=== PATIENT | female | born 1965 | race Two or more races ===

== ENCOUNTER 2021-03-10 00:42 | Emergency (ER) | payer MEDICAID ==
[~2021-03-10] VITALS: Ht 160 cm; Wt 70.8 kg
[2021-03-10 01:45] VITALS: BP 129/83
[2021-03-10] MEDS ORDERED: IBUP-1957 PO (02:02)
[2021-03-10] MEDS ORDERED: IBUPROFEN 400 MG TABLET ONE (02:06)
[2021-03-10] MEDS ORDERED: IBUPROFEN 400 MG TABLET PO ONE (02:30)
== END 2021-03-10 02:17 | disposition home or self-care (01) ==
LOC: ER 00:46
DX: M62.830 Muscle spasm of back (principal); M17.11 Unilateral primary osteoarthritis, right knee; R51.9 Headache, unspecified; M54.2 Cervicalgia; Z79.899 Other long term (current) drug therapy

== ENCOUNTER 2021-09-03 21:47 | Emergency (ER) | payer MEDICAID ==
[~2021-09-03] VITALS: Ht 154.9 cm; Wt 67.1 kg
[~2021-09-03 21:47] MED LIST: IBUP-1957 PO
--- NOTE | 2021-09-03 22:15 | NUR ---
PT BIBS WITH C/O L LOWER BACK AND L HIP PAIN S/P SLIP AND FELL X 3 DAYS AGO. -HT. PT ALERT AND ORIENTED X3. AMBULATORY WITH NON LABORED BREATHING.
[2021-09-03] MEDS ORDERED: KETOROLAC TROMETHAMINE INJ 60 MG/2 ML VIAL IM ONE (23:00)
[2021-09-03] MEDS ORDERED: KETOROLAC TROMETHAMINE INJ 30 MG/ML VIAL ONE (23:04)
--- NOTE | 2021-09-03 23:50 | NUR ---
CALLED THOMAS FOR X RAY READ
[2021-09-04] MEDS ORDERED: DICL50TA7 PO
--- NOTE | 2021-09-04 00:27 | NUR ---
Patient discharged to home in stable condition. Written and verbal after care instructions given. Patient verbalizes understanding of instruction. Pt ambulatory with a steady gait
[2021-09-04 00:28] VITALS: BP 123/88
== END 2021-09-04 00:28 | disposition home or self-care (01) ==
LOC: ER 21:47
DX: M54.50 Low back pain, unspecified (principal); M25.552 Pain in left hip; E78.5 Hyperlipidemia, unspecified; M19.90 Unspecified osteoarthritis, unspecified site; W01.0XXA Fall on same level from slipping, tripping and stumbling without subsequent striking against object, initial encounter; Y93.89 Activity, other specified; Y92.89 Other specified places as the place of occurrence of the external cause; Y99.8 Other external cause status
CPT/HCPCS: 72110; 73503; 96372; 99284; J1885; 73502

== ENCOUNTER 2024-02-08 08:52 | Emergency (ER) | payer MEDICAID ==
[~2024-02-08] VITALS: Ht 152.4 cm; Wt 62.6 kg
[~2024-02-08 08:52] MED LIST changes: +DICL50TA7 PO
[2024-02-08] MEDS ORDERED: KETOROLAC TROMETHAMINE INJ 30 MG/ML VIAL ONE (09:56)
[2024-02-08] MEDS: KETOROLAC TROMETHAMINE 15 MG/ML VIAL IM ONE (10:06)
[2024-02-08] MEDS ORDERED: BENZ-13 PO (10:29)
[2024-02-08] MEDS ORDERED: IBUP-1957 PO (10:29)
[2024-02-08 10:44] VITALS: BP 125/70; TEMP 98.5; O2SAT 100
== END 2024-02-08 10:44 | disposition home or self-care (01) ==
LOC: ER 08:56
DX: J06.9 Acute upper respiratory infection, unspecified (principal); Z20.822 Contact with and (suspected) exposure to COVID-19; E78.5 Hyperlipidemia, unspecified; M17.11 Unilateral primary osteoarthritis, right knee
CPT/HCPCS: 99285; 71045; 87426; 96372; 93005; 87804 ×2; J1885

== ENCOUNTER 2025-03-03 20:52 | Emergency (ER) | payer MEDICAID ==
[~2025-03-03] VITALS: Ht 154.9 cm; Wt 61.2 kg
[~2025-03-03 20:52] MED LIST changes: +BENZ-13 PO
[2025-03-04] MEDS ORDERED: CYCLOBENZAPRINE 10 MG TABLET ONE (00:33)
[2025-03-04] MEDS ORDERED: ACETAMINOPHEN ES 500 MG TABLET ONE (00:33)
[2025-03-04] MEDS: CYCLOBENZAPRINE 10 MG TABLET PO ONE (00:37)
[2025-03-04] MEDS: ACETAMINOPHEN ES 500 MG TABLET PO ONE (00:38)
[2025-03-04] MEDS ORDERED: CYCL5TAB PO (01:26)
[2025-03-04 01:58] VITALS: BP 130/82; TEMP 98.6; O2SAT 98
== END 2025-03-04 01:58 | disposition home or self-care (01) ==
LOC: ER 21:04
DX: S13.4XXA Sprain of ligaments of cervical spine, initial encounter (principal); S40.022A Contusion of left upper arm, initial encounter; E78.5 Hyperlipidemia, unspecified; Z79.1 Long term (current) use of non-steroidal anti-inflammatories (NSAID); Z79.899 Other long term (current) drug therapy; V49.88XA Car occupant (driver) (passenger) injured in other specified transport accidents, initial encounter; Y93.89 Activity, other specified; Y92.410 Unspecified street and highway as the place of occurrence of the external cause; Y99.8 Other external cause status
CPT/HCPCS: 72125-TC; 73060-TC; 73090-TC

== ENCOUNTER → 2025-10-03 | Emergency (ER) | payer MEDICAID ==
[~2025-10-03] VITALS: Ht 154.9 cm; Wt 60.8 kg
[~2025-10-03] MED LIST changes: +ACETAMINOPHEN 325 MG TABLET ONE; +CYCL5TAB PO; +IBUPROFEN 600 MG TABLET ONE
[2025-10-03 21:57] LABS: PLATELET COUNT (AUTO) 235 K/uL (150-450); RED BLOOD CELL COUNT(AUTO) 4.31 MIL/uL (4.0-5.2); RED CELL DISTRIBUTION WIDTH 13.1 % (11.5-15.0); WHITE BLOOD COUNT (AUTO) 6.1 K/uL (4.3-11.0)
[2025-10-03 22:05] LABS: CALCIUM, SERUM 8.9 mg/dL (8.5-10.1); CREATININE 0.3 mg/dL (0.6-1.3); SODIUM SERUM 139 mmol/L (136-145); UREA NITROGEN, BLOOD 12 mg/dL (7-18)
[2025-10-03] MEDS: IBUPROFEN 600 MG TABLET PO ONE (23:33)
[2025-10-03] MEDS: ACETAMINOPHEN 325 MG TABLET PO ONE (23:33)
[2025-10-03 23:55] VITALS: BP 128/60; TEMP 98; O2SAT 100
== END | disposition home or self-care (01) ==
LOC: ER 21:09
DX: R07.89 Other chest pain (principal); M54.6 Pain in thoracic spine; M17.11 Unilateral primary osteoarthritis, right knee; E78.5 Hyperlipidemia, unspecified; Z79.1 Long term (current) use of non-steroidal anti-inflammatories (NSAID)
CPT/HCPCS: 36415; 71045-TC; 80048-TC; 84484-TC; 85025-TC